=== PATIENT | female | born 2000 | race Caucasian/White ===

== ENCOUNTER 2022-06-10 21:02 | Observation (INO) | payer MEDICAID ==
[~2022-06-10] VITALS: Ht 160 cm; Wt 105.2 kg
[2022-06-10] MEDS ORDERED: PREN1TAB78 PO (23:03)
== END 2022-06-10 23:30 | disposition home or self-care (01) ==
LOC: 8 EST LDRP 21:02
PROVIDERS: ADMIT Obstetrics & Gynecology; ATTEND Obstetrics & Gynecology
DX: O26.853 Spotting complicating pregnancy, third trimester (principal); Z3A.35 35 weeks gestation of pregnancy
CPT/HCPCS: 59025; 76815; 76818; G0378; 99281

== ENCOUNTER 2022-07-10 20:39 | Inpatient (IN) | payer MEDICAID ==
[~2022-07-10] VITALS: Ht 160 cm; Wt 114.3 kg
[~2022-07-10 20:39] MED LIST: PREN1TAB78 PO
[2022-07-10] MEDS ORDERED: PNV1TABL76 PO (21:13)
[2022-07-10] MEDS ORDERED: BUTORPHANOL TARTRATE 2 MG/ML VIAL IV PRN (22:45)
[2022-07-10 23:00] LABS: BASOPHILS % 0.3 % (0.0-2.0); EOSINOPHILS % 0.5 % (0.0-5.0); HEMATOCRIT. 26.8 % (36.0-48.0); HEMOGLOBIN. 8.6 g/dL (12.0-16.0); MEAN PLATELET VOLUME 9.4 fl (7.4-10.4); MONOCYTES % 5.4 % (2.0-8.0); NEUTROPHILS % 78.8 % (40.0-76.0); PLATELET 245 x1000/uL (130-400); RED BLOOD CELL COUNT 3.72 mill/uL (4.2-5.4); RED CELL DISTRIBUTION WIDTH 21.6 % (11.6-14.6)
[2022-07-10] MEDS ORDERED: CLINDAMYCIN 900 MG PREMIX 50 ML IV SCH (23:00)
[2022-07-10] MEDS ORDERED: DEXT 5%/LR + PITOCIN 20UNITS/L 1,000 ML IV SCH (23:00)
[2022-07-10 23:06] LABS: INR 0.9; PARTIAL THROMBOPLASTIN TIME 24.5 sec (23.4-31.0); PROTHROMBIN TIME 9.9 sec (9.6-11.0)
[2022-07-10] MEDS: LACTATED RINGERS 1,000 ML IV SCH (23:11)
[2022-07-10] MEDS ORDERED: OXYTOCIN 30 UNITS/500ML NS PMX 500 ML IV ONE (23:15)
[2022-07-10 23:17] LABS: CLARITY URINE CLOUDY (CLEAR); COLOR URINE YELLOW (YELLOW); KETONES URINE TRACE (NEGATIVE); LEUKOCYTE ESTERASE URINE 1+ (NEGATIVE); NITRITE URINE NEGATIVE (NEGATIVE); OCCULT BLOOD URINE 2+ (NEGATIVE); PROTEIN URINE TRACE (NEGATIVE); SPECIFIC GRAVITY URINE 1.033 (1.005-1.030)
[2022-07-10 23:26] LABS: HEPATITIS B SURFACE ANTIGEN NEGATIVE
[2022-07-10 23:31] LABS: *AMPHETAMINES SCREEN URINE NEGATIVE (NEGATIVE); *BARBITURATES SCREEN URINE NEGATIVE (NEGATIVE); *BENZODIAZEPINES SCREEN URINE NEGATIVE (NEGATIVE); *COCAINE SCREEN URINE NEGATIVE (NEGATIVE); CANNABINOID URINE SCREEN NEGATIVE (NEGATIVE); METHADONE URINE SCREEN NEGATIVE (NEGATIVE); OPIATES URINE SCREEN NEGATIVE (NEGATIVE); PHENCYCLIDINE URINE SCREEN NEGATIVE (NEGATIVE)
[2022-07-11] MEDS ORDERED: LIDOCAINE HCL 2%/EPINEPHRINE 1:100,000 20 ML VIAL INFIL ONE ×2 (01:00→12:00)
[2022-07-11] MEDS ORDERED: FENTANYL CITRATE/PF 50MCG/ML 2ML VIAL ONE ×2 (01:42→18:53)
[2022-07-11] MEDS ORDERED: ROPIVACAINE HCL/PF EPIDURAL 200 ML EPI ONE (01:42)
[2022-07-11] MEDS ORDERED: ROPIVACAINE HCL/PF EPIDURAL 200 ML EPI SCH (01:45)
[2022-07-11] MEDS: LACTATED RINGERS 1,000 ML IV SCH ×4 (02:02→21:54)
[2022-07-12] MEDS ORDERED: HEMORRHOIDAL SUPP PR PRN (00:45)
[2022-07-12] MEDS ORDERED: OXYTOCIN 30 UNITS/500ML NS PMX 500 ML IV SCH (00:45)
[2022-07-12] MEDS ORDERED: RHO(D) IMMUNE GLOBULIN 300 MCG/SYR IM PRN (00:45)
[2022-07-12] MEDS ORDERED: GLYCERIN/WITCH HAZEL LEAF MEDICATED PAD TOP PRN (00:45)
[2022-07-12] MEDS ORDERED: BENZOCAINE/LANOLIN/ALOE VERA SPRAY TOP PRN (00:45)
[2022-07-12] MEDS ORDERED: BISACODYL 10MG SUPP PR PRN (00:45)
[2022-07-12] MEDS ORDERED: LANOLIN OINT 7GM TUBE TOP PRN (00:45)
[2022-07-12] MEDS ORDERED: DIPHENHYDRAMINE 25MG CAPSULE PO PRN (00:45)
[2022-07-12] MEDS ORDERED: IBUPROFEN 400MG TABLET PO PRN (00:45)
[2022-07-12] MEDS ORDERED: ACETAMINOPHEN WITH CODEINE 300/30MG TABLET PO PRN (00:45)
[2022-07-12] MEDS: IBUPROFEN 800MG TABLET PO PRN ×2 (00:50→16:29)
[2022-07-12] MEDS ORDERED: LIDOCAINE HCL 1% 10 MG/ML 10ML VIAL INJ ONE (01:00)
[2022-07-12 03:05] VITALS: BP 137/68
[2022-07-12 03:35] VITALS: BP 136/68
[2022-07-12 06:00] VITALS: BP 120/64
[2022-07-12 07:14] LABS: BASOPHILS % 0.1 % (0.0-2.0); EOSINOPHILS % 0.1 % (0.0-5.0); HEMATOCRIT. 23.1 % (36.0-48.0); HEMOGLOBIN. 7.1 g/dL (12.0-16.0); LYMPHOCYTES % 11.7 % (20.0-50.0); MEAN CORPUSCULAR HEMOGLOBIN 22.4 pg (28.0-32.0); MEAN CORPUSCULAR VOLUME 72.4 fL (81.0-99.0); MEAN PLATELET VOLUME 9.5 fl (7.4-10.4); MONOCYTES % 5.1 % (2.0-8.0); PLATELET 236 x1000/uL (130-400); RED BLOOD CELL COUNT 3.19 mill/uL (4.2-5.4); RED CELL DISTRIBUTION WIDTH 22.1 % (11.6-14.6)
[2022-07-12 08:20] VITALS: BP 124/67
[2022-07-12] MEDS: SIMETHICONE 80MG TABLET CHEW PO SCH ×3 (09:08→21:28)
[2022-07-12] MEDS: PRENATAL VIT/FE FUMARATE/FA TABLET PO SCH (09:08)
[2022-07-12 16:30] VITALS: BP 117/67
[2022-07-12 17:51] LABS: PLATELET ESTIMATE NORMAL
[2022-07-12 20:00] VITALS: BP 134/64
[2022-07-12] MEDS ORDERED: DOCUSATE SODIUM 100MG CAPSULE PO SCH (21:00)
[2022-07-13 04:00] VITALS: BP 122/60
[2022-07-13 06:47] LABS: BASOPHILS % 0.3 % (0.0-2.0); EOSINOPHILS % 0.9 % (0.0-5.0); LYMPHOCYTES % 21.8 % (20.0-50.0); MEAN CORPUSCULAR HEMOGLOBIN 23.6 pg (28.0-32.0); MEAN CORPUSCULAR VOLUME 72.8 fL (81.0-99.0); MEAN PLATELET VOLUME 9.6 fl (7.4-10.4); MONOCYTES % 4.9 % (2.0-8.0); NEUTROPHILS % 72.1 % (40.0-76.0); PLATELET 227 x1000/uL (130-400); RED BLOOD CELL COUNT 2.74 mill/uL (4.2-5.4); RED CELL DISTRIBUTION WIDTH 21.6 % (11.6-14.6)
[2022-07-13 06:50] LABS: HEMATOCRIT. 19.9 % (36.0-48.0); HEMOGLOBIN. 6.5 g/dL (12.0-16.0)
[2022-07-13] MEDS ORDERED: FERROUS SULFATE 325MG TABLET PO SCH (07:30)
[2022-07-13 07:45] VITALS: BP 121/75
[2022-07-13] MEDS: IBUPROFEN 800MG TABLET PO PRN (08:24)
[2022-07-13] MEDS: SIMETHICONE 80MG TABLET CHEW PO SCH (08:24)
[2022-07-13] MEDS: PRENATAL VIT/FE FUMARATE/FA TABLET PO SCH (08:24)
== END 2022-07-13 10:20 | disposition home or self-care (01) | DRG 560 ==
LOC: 8 EST LDRP 20:39 → OBSVTOIN 22:00 → 8EST 07-12 02:16
PROVIDERS: ADMIT Obstetrics & Gynecology; ATTEND Obstetrics & Gynecology
PROC: 10E0XZZ Delivery of Products of Conception, External Approach (ICD-10-PCS; principal; 2022-07-12)
PROC: 0W8NXZZ Division of Female Perineum, External Approach (ICD-10-PCS; 2022-07-12)
PROC: 3E0R3BZ Introduction of Anesthetic Agent into Spinal Canal, Percutaneous Approach (ICD-10-PCS; 2022-07-12)
PROC: 00HU33Z Insertion of Infusion Device into Spinal Canal, Percutaneous Approach (ICD-10-PCS; 2022-07-12)
DX: O36.63X0 Maternal care for excessive fetal growth, third trimester, not applicable or unspecified (principal); Z37.0 Single live birth; O77.0 Labor and delivery complicated by meconium in amniotic fluid; Z20.822 Contact with and (suspected) exposure to COVID-19; Z3A.40 40 weeks gestation of pregnancy; Z88.0 Allergy status to penicillin
CPT/HCPCS: 36415; 76805; 76818; 80305; 81003; 85025; 86592; 86703; 86762; 86850; 86900; 87340; 87426; 99281; G0378; J2795; J3010; J3490; A4315; J2590